=== PATIENT | male | born 1965 | race Caucasian/White ===

== ENCOUNTER 2024-01-17 18:43 | Emergency (ER) | payer OTHER, SELFPAY ==
[2024-01-17 18:45] VITALS: BP 166/101
[2024-01-17] MEDS: TORADOL 60 MG IM (19:50)
[2024-01-17 21:00] VITALS: BP 155/96
--- NOTE | 2024-01-17 22:00 | ED.GENMED ---
History of Present Illness
General
Chief Complaint: Fall
Source: patient
Exam Limitations: none
Time Seen by Provider: 01/17/24 19:03
Travel History
Have you had any contact with someone who has COVID-19?: No
Do you have any symptoms of coronavirus? Fever > 100 degrees, chills, cough, shortness of breath, sore throat, loss of taste or smell, muscle aches, or headache?: No
History of Present Illness
History of Present Illness:
58-year-old male who presents with back pain after fall. The patient was watering about an hour and a half ago and slipped and fell forward. The patient states he landed on the front but was able to get up and continue to order the lawn and
garden. He then began noticed back hurt and it hurt more after he sat down and tried to get up. Patient denies any radiation of the pain. He reports pain in the low back. He also feels like there is some pain in his pelvis when he tries to sort
of stretch his groin. No vomiting. No head injury. No motor weakness.
Past History
Past History
ED Past Medical History: GERD, HTN, Hypercholesterolemia and [place]
ED Past Surgical History: Cardiac (Catheterization with stent 2009) and Other (Renal artery sympathetic nerve ablation in January 2013, bilateral thoracic sympathectomy October 2014)
Social History
Tobacco: Non-smoker
Alcohol: Occasional
Living: with family
Employment: Not employed
Family History
Family History: Hypertension and CAD
Phy Exam
Physical Exam
Physical Exam:
CONSTITUTIONAL Patient alert and oriented to person, place and time. Mild to moderate pain distress. Vital signs reviewed.
HEAD atraumatic, normocephalic.
EYES eyelids normal to inspection, \\ Extraocular muscles intact, Conjunctiva normal, Sclera normal.
NECK normal range of motion, Trachea midline, no jugular venous distention.
RESPIRATORY CHEST No respiratory distress noted, Chest expansion equal
ABDOMEN abdomen nontender, Bowel sounds normal. No distention.
BACK normal inspection, no obvious deformities, moderate tenderness throughout the lumbar spine including both midline and paraspinal
UPPER EXTREMITY range of motion normal, Motor strength normal, no cyanosis, no edema.
LOWER EXTREMITY range of motion normal, Motor strength normal, no cyanosis, no edema.
NEURO Speech normal, No focal motor deficits, Gerardo coma scale 15, Memory normal, Cranial Nerves intact to screening exam. Normal gait.
SKIN skin warm, dry, and normal in color.
PSYCHIATRIC patient oriented to person place and time, Normal affect.
Course
Orders/Labs/Results
Orders:
Orders
01/17/24 19:16
Ketorolac [Toradol] 60 mg IM NOW STA
01/17/24 19:50
CT Lumbar Spine W/o Iv Contras Urgent
Comment:
Reason For Exam: fall
CT Pelvis W/o Iv Contrast Urgent
Comment:
Reason For Exam: fall
Vital Signs
Initial and Last Documented VS:
Initial Vital Signs
Temp Pulse Resp BP Pulse Ox
98.1 F 95 16 166/101 98
01/17/24 18:45 01/17/24 18:45 01/17/24 18:45 01/17/24 18:45 01/17/24 18:45
Last Documented Vital Signs
Temp Pulse Resp BP Pulse Ox
98.1 F 95 16 166/101 98
01/17/24 18:45 01/17/24 18:45 01/17/24 18:45 01/17/24 18:45 01/17/24 18:45
MDM/Problems Addressed
MDM/Problems Addressed:
Low back pain, fall
*Radiology
Radiology exam reviewed: preliminary read by ED provider (No obvious fracture) and radiology read reviewed
*Pulse Oximetry
Patient hypoxic: no
*Critical Care Note
Total Time (30-74mins, 75-104mins- exclusive of procedures): Not Applicable
Data Reviewed
Source: patient and spouse
Prescriptions/Medications Considered But Not Given:
Consider muscle relaxers but will trial steroids
Patient Management
Escalation/DeEscalation of care consider admission/obs:
Neurologic assessment. Given the type of injury will cover with steroids and recommended NSAIDs and outpatient follow-up
ED Attending Note
-
Portions of this chart may have been created with voice recognition software.� Occasional wrong word or��sound alike� substitutions may have occurred due to the inherent limitations of voice recognition software.
Discharge Plan
Departure
Patient Disposition: Home (Routine Discharge)
Date of Disposition: 01/17/24
Time of Disposition: 22:04
Patient with high blood pressure during this ER visit?: Yes
Discharge Problem:
Low back pain
Instructions: Low Back Pain (DC), BLOOD PRESSURE
Prescriptions:
New
prednisone 10 mg Tablet
See Rx Instructions .ROUTE .COMPLEX Qty: 30 0RF
Rx Instructions:
Take By Mouth:
40 mg daily x3 days, 30 mg daily x3 days,
20 mg daily x3 days, 10 mg daily x3 days.
No Action
furosemide 40 MG tablet
40 mg PO DAILY
labetalol 200 MG tablet
200 mg PO TID
prazosin 1 MG capsule
1 mg PO HS
potassium chloride [Klor-Con] 20 MEQ packet
20 meq PO DAILY
prazosin [Minipress] 2 MG capsule
2 mg PO DAILY
clopidogrel [Plavix] 75 MG tablet
75 mg PO DAILY
isosorbide mononitrate 120 MG tablet extended release 24 hr
120 mg PO DAILY
isosorbide mononitrate 60 MG tablet extended release 24 hr
60 mg PO HS
nitroglycerin 0.4 MG tablet, sublingual
0.4 mg sublingual [id number] PRN (Reason: CP/BP)
aspirin [Shantelle Chewable Aspirin] 81 MG tablet,chewable
81 mg PO DAILY
albuterol sulfate 1 PUFF HFA aerosol inhaler
1 puff inhalation R [id number] PRN (Reason: SOB)
fluticasone propionate 1 SPRAY spray,suspension
1 spray intranasal DAILY
rosuvastatin [Crestor] 40 MG tablet
40 mg PO DAILY
budesonide-formoterol [Symbicort] 1 PUFF HFA aerosol inhaler
2 puff inhalation R BID
multivitamin [One-A-Day Essential] 1 EACH tablet
1 tab PO DAILY
minoxidil 10 MG tablet
10 mg PO BID Qty: 60 11RF
eplerenone 25 MG tablet
25 mg PO DAILY Qty: 30 11RF
prednisone 20 MG tablet
40 mg PO DAILY Qty: 6 0RF
Referrals:
Kentrell Holt MD [Family Provider] -
Activity Restrictions/Additional Instructions:
Return immediately for numbness, tingling, motor weakness of the lower extremities, bowel or bladder incontinence, worsening pain, abdominal pain or any other concerns. Please rest please use ibuprofen every 6 hours as needed. Please see your
doctor in the next 1 week for follow-up and reevaluation as further imaging such as an MRI may be necessary if symptoms persist.
Interventions
Interventions:
*Risk Screen - Suicide Last Done: 01/17/24 19:56
*General Assessment Last Done: 01/17/24 18:45
*Neglect/Abuse Screening Last Done: 01/17/24 19:56
*ED COVID-19 Vaccine History Last Done: 01/17/24 19:56
ED-Musculoskeletal Assessment Last Done: 01/17/24 19:56
ED- Neurological Assessment Last Done: 01/17/24 19:56
ED-Skin Assessment Last Done: 01/17/24 19:56
Discharge Date and Time
Print Language: SLOVENIAN
[2024-01-17 22:35] VITALS: BP 148/90
== END 2024-01-17 22:55 | disposition home or self-care (01) ==
LOC: EMR 18:43
PROVIDERS: EMERGENCY PHYSICIAN Emergency Medicine; FAMILY PHYSICIAN Internal Medicine
DX: M54.50 Low back pain, unspecified (principal); R10.2 Pelvic and perineal pain; W01.0XXA Fall on same level from slipping, tripping and stumbling without subsequent striking against object, initial encounter; I10 Essential (primary) hypertension; E78.00 Pure hypercholesterolemia, unspecified; K21.9 Gastro-esophageal reflux disease without esophagitis; I25.2 Old myocardial infarction; Z95.5 Presence of coronary angioplasty implant and graft; Z79.82 Long term (current) use of aspirin; Z79.02 Long term (current) use of antithrombotics/antiplatelets
CPT/HCPCS: 99284; 96372; 72131; 72192

== ENCOUNTER 2025-05-30 06:16 | Day surgery (SDC) | payer OTHER, SELFPAY | END 2025-05-30 11:20 | disposition home or self-care (01) | LOC: GI 06:16 | PROVIDERS: ATTENDING PHYSICIAN Specialist | DX: Z12.11 Encounter for screening for malignant neoplasm of colon (principal); K57.30 Diverticulosis of large intestine without perforation or abscess without bleeding; Z86.0101 Personal history of adenomatous and serrated colon polyps | CPT/HCPCS: G0105 ==